=== PATIENT | male | born 1965 | race Caucasian/White ===

== ENCOUNTER 2020-02-24 16:28 | Emergency (ER) | payer OTHER ==
[2020-02-24] MEDS ORDERED: PREDNISONE 20 MG TABLET PO ONE (17:18)
--- NOTE | 2020-02-24 17:19 | ER Document Report ---
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 Stung on the left and right legs as well as on the chest. 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 Patient did have an EpiPen and used it around 3 PM. Patient states he did have some shortness of breath at the time and has developed some redness at the site of the stings. Currently asymptomatic. He did take oral Benadryl 25 mg at home. Was seen by EMS and brought for evaluation ROS: See HPI - all other systems were reviewed and are otherwise negative Constitutional: no fever Eyes: no drainage, no blurred vision ENT: no runny nose, no sore throat Cardiovascular: no chest pain Resp: + SOB, no cough GI: no vomiting, no diarrhea, no abdominal pain : no dysuria Integumentary: no rash Allergy: + hives Musculoskeletal: no extremity pain or swelling Neurological: no numbness/tingling, no weakness MEDICATIONS: I agree with the patient medications as charted by the RN. ALLERGIES: I agree with the allergies as charted by the RN. PAST MEDICAL HISTORY/PAST SURGICAL HISTORY: Reviewed and agree as charted by RN. SOCIAL HISTORY: Reviewed and agree as charted by RN. FAMILY HISTORY: No significant familial comorbid conditions directly related to patient complaint EXAM: Reviewed vital signs as charted by RN. CONSTITUTIONAL: Alert and oriented and responds appropriately to questions. Well-appearing; well-nourished HEAD: Normocephalic; atraumatic EYES: PERRL; Conjunctivae clear, sclerae non-icteric ENT: normal nose; no rhinorrhea; moist mucous membranes; pharynx without lesions noted, no uvula edema or deviation, no tonsillar hypertrophy, phonation normal. No angioedema NECK: Supple without meningismus; non-tender; no cervical lymphadenopathy, no masses. No stridor CARD: RRR; no murmurs, no clicks, no rubs, no gallops; symmetric distal pulses RESP: Normal chest excursion without splinting or tachypnea; breath sounds clear and equal bilaterally; no wheezes, no rhonchi, no rales, pulse oximetry 98% on room air not hypoxic ABD/GI: Normal bowel sounds; non-distended; soft, non-tender, no rebound, no guarding; no palpable organomegaly or masses. BACK: The back appears normal and is non-tender to palpation, there is no CVA tenderness EXT: Normal ROM in all joints; non-tender to palpation; no cyanosis, no effusions, no edema SKIN: Normal color for age and race; warm; dry; good turgor; small area of localized erythema to the left lower leg, left posterior thigh, right posterior thigh, left anterior chest wall. No generalized urticaria is noted NEURO: Moves all extremities equally; Motor and sensory function intact PSYCH: The patient's mood and manner are appropriate. Grooming and personal hygiene are appropriate. MDM: 55-year-old male presenting for allergic reaction. Has an allergy to hymenoptera, was stung 4 times by bees, used his EpiPen approximately an hour and a half ago. We will continue to observe patient for another hour and a half to complete the 4-hour observation. If he has no worsening symptoms will discharge home with prescription for steroids antihistamines and EpiPen - Related Data Allergies/Adverse Reactions: bee venom protein (honey bee) Allergy (Verified 02/24/20 16:45) Past Medical History - Social History Smoking Status: Former Smoker Chew tobacco use (# tins/day): No Drug Abuse: None Family History: Reviewed & Not Pertinent Patient has homicidal ideation: No Physical Exam - Vital signs Vitals: Resp Pulse Ox 13 98 02/24/20 16:35 02/24/20 16:35 Course - Re-evaluation Re-evalutation: 02/24/20 18:44 No distress at this time, no angioedema no stridor phonation is normal, no worsening of the erythematous areas where he was stung at this time. Will discharge home with return instructions - Vital Signs Vital signs: Temp Pulse Resp BP Pulse Ox 98.5 F 93 23 H 151/98 H 96 02/24/20 16:53 02/24/20 16:53 02/24/20 18:01 02/24/20 18:00 02/24/20 18:01 Discharge - Discharge Clinical Impression: Bee sting-induced anaphylaxis Qualifiers: Encounter type: initial encounter Injury intent: undetermined intent Qualified Code(s): T63.444A - Toxic effect of venom of bees, undetermined, initial encounter Condition: Stable Disposition: HOME, SELF-CARE Instructions: Acute Allergic Reaction ([facility]) Additional Instructions: 1. take the medications as prescribed 2. take Benadryl 25-50 mg three times daily for 3-4 days 3. follow up recheck with PCP for further evaluation and treatment, call for appt. 4. return for any shortness of breath or worsening rash or condition 5. Use the Epipen if needed for any shortness of breath, difficulty swallowing or worsening condition to buy time to get to an ER or call EMS for further treatment and evaluation Prescriptions: Prednisone [Deltasone 20 mg Tablet] 2 tab PO DAILY 5 Days #10 tablet Epinephrine [Epipen 2-Sim] 0.3 mg IJ PRN PRN #1 auto.injct PRN Reason: Famotidine [Pepcid 20 mg Tablet] 20 mg PO BID #12 tablet
[2020-02-24] MEDS ORDERED: FAMOTIDINE 20 MG TABLET PO ONE (17:22)
[2020-02-24 19:17] VITALS: BP 153/93
== END 2020-02-24 19:17 | disposition home or self-care (01) ==
LOC: ER 16:28
DX: T63.444A Toxic effect of venom of bees, undetermined, initial encounter (principal); T78.2XXA Anaphylactic shock, unspecified, initial encounter; Y93.89 Activity, other specified; Y92.821 Forest as the place of occurrence of the external cause; Z87.891 Personal history of nicotine dependence
CPT/HCPCS: 99283; J7512

== ENCOUNTER 2020-03-19 17:27 | Emergency (ER) | payer OTHER, MEDICAID ==
[2020-03-19 17:36] VITALS: BP 170/98
--- NOTE | 2020-03-19 18:00 | ER Document Report ---
ED Skin Rash/Insect Bite/Abscs - General Chief Complaint: Insect Bite Stated Complaint: SPIDER BITE Time Seen by Provider: 03/19/20 17:50 Primary Care Provider: CAMMY,FRANSICO [Primary Care Provider] - Follow up in 3-5 days Mode of Arrival: Ambulatory Information source: Patient Notes: 55-year-old male presented to ED for spider bite to the right lower leg. He states the spider bit him before yesterday. He states he is coming back up on 48 hours at this time. He does have a red swollen area to the right lateral calf area. I did consult Dr. Farnsworth who came and looked at his right he stated there it could be a spider bite and recommended treatment with doxycycline and steroids. She is alert oriented respirations regular nonlabored speaking in full sentences. He states he does have numerous allergies and he did use his EpiPen frequently. He is a [employer] and [facility]. Constitutional: Negative for fever. HENT: Negative for sore throat. Eyes: Negative for visual changes. Cardiovascular: Negative for chest pain. Respiratory: Negative for shortness of breath. Gastrointestinal: Negative for abdominal pain, vomiting or diarrhea. Genitourinary: Negative for dysuria. Musculoskeletal: Negative for back pain. Skin: Red inflamed area to the right lateral calf for close to 48 hours. He states it was a brown recluse bite. He states he saw the spider bite him. Neurological: Negative for headaches, weakness or numbness. 10 point ROS negative except as marked above and in HPI. PHYSICAL EXAMINATION: GENERAL: Well-appearing, well-nourished and in no acute distress. HEAD: Atraumatic, normocephalic. EYES: Pupils equal round extraocular movements intact, conjunctiva are normal. ENT: Nares patent NECK: Normal range of motion LUNGS: No respiratory distress Musculoskeletal: Normal range of motion NEUROLOGICAL: Normal speech, normal gait. PSYCH: Normal mood, normal affect. SKIN: Red inflamed area to the right lower calf that he states has been there for 2 days. - HPI Patient complains to provider of: Tender/swollen area, Spider bite Onset: Other - 2 days Onset/Duration: Persistent Quality of pain: Pressure Severity: Moderate Pain Level: 2 Skin Character: Tenderness, Other - insect bite Quality of rash: Painful Identify cause: Yes Exacerbated by: Walking Relieved by: Denies Similar symptoms previously: Yes Recently seen / treated by doctor: Yes - Related Data Allergies/Adverse Reactions: bee venom protein (honey bee) Allergy (Verified 03/19/20 17:50) ants Allergy (Uncoded 03/19/20 17:54) Past Medical History - General Information source: Patient - Social History Smoking Status: Never Smoker Chew tobacco use (# tins/day): No Frequency of alcohol use: None Drug Abuse: None Family History: Reviewed & Not Pertinent Patient has suicidal ideation: No Patient has homicidal ideation: No - Past Medical History Cardiac Medical History: Reports: None Pulmonary Medical History: Reports: None EENT Medical History: Reports: None Neurological Medical History: Reports: None Endocrine Medical History: Reports: None Renal/ Medical History: Reports: None Malignancy Medical History: Reports None GI Medical History: Reports: None Musculoskeletal Medical History: Reports None Skin Medical History: Reports Hx Cellulitis Psychiatric Medical History: Reports: None Traumatic Medical History: Reports: None Infectious Medical History: Reports: None - Immunizations Immunizations up to date: Yes Physical Exam - Vital signs Vitals: Temp Pulse Resp BP Pulse Ox 98.1 F 73 16 170/98 H 99 03/19/20 17:35 03/19/20 17:35 03/19/20 17:35 03/19/20 17:35 03/19/20 17:35 Course - Vital Signs Vital signs: Temp Pulse Resp BP Pulse Ox 98.1 F 73 16 170/98 H 99 03/19/20 17:35 03/19/20 17:35 03/19/20 17:35 03/19/20 17:35 03/19/20 17:35 Discharge - Discharge Clinical Impression: Spider bite Qualifiers: Encounter type: initial encounter Injury intent: accidental or unintentional Qualified Code(s): T63.301A - Toxic effect of unspecified spider venom, accidental (unintentional), initial encounter Condition: Stable Disposition: HOME, SELF-CARE Additional Instructions: You were seen for a spider bite to your right lower leg. Please spider bite okay Epsom Salt Soaks Soak the wound area in a container of warm epsom salt water. If you can't get the wound area into a bucket or yeager, use a folded towel soaked in the epsom salt solution and apply to the area. Use clean hot tap water (about the temperature of a very warm bath), mixing in about one (1) teaspoon for every pint of water. Two gallon --> 16 teaspoons Epsom Salts One gallon --> 8 teaspoons Epsom Salts Two quarts --> 4 teaspoons Epsom Salts One quart --> 2 teaspoons Epsom Salts Soak the wound for about 20 minutes while gently moving it around in the water. Repeat this four (4) times a day. Doxycycline Doxycycline (Vibramycin, Doryx) is an antibiotic of the tetracycline family . This type of drug is useful for infections of the respiratory tract and genital tract, and is sometimes used for intestinal infections. Unlike most tetracyclines, doxycycline can be taken with food. It is longer acting, and (usually) less prone to side effects than regular tetracycline. Tetracycline antibiotics can stain immature teeth and SHOULD NOT BE TAKEN BY CHILDREN, NURSING MOTHERS, OR WOMEN. Tetracyclines can make you more prone to sunburn. Abdominal cramping, nausea, and diarrhea are occasional side effects. Women may experience vaginal yeast infections. Call the doctor at once if you develop hives, itching, shortness of breath, or lightheadedness. Antibiotic Ointment Protection Your wounds are such that dressing them is not practical or optional. After cleansing, you should apply a thin coating of antibiotic ointment (Bacitracin, not Neosporin) to the wounds at least three times daily. This lessens infection risk, and may decrease the amount of scarring. Use a q-tip or dull butter knife, not your finger, to apply this ointment. Any debris or ooze which builds up in the ointment should be gently rubbed off with a sterile gauze pad. Harder crusting may need to be gently scrubbed off with a clean wash cloth with soap and warm water, perhaps applying a warm, wet wash cloth to the wound for ten minutes first. Development of redness, severe itching, or blistering may mean allergy to the ointment. See the doctor. STEROID MEDICATION: You have been given a medicine of the cortisone/steroid class. This medication is used to control inflammation or allergy. It is usually only given for a short period of time, until the acute process subsides. There are usually no side effects from short-term use of cortisone-like medications. Some persons feel an increased sense of well-being and are not sleepy at bedtime. Long-term use of cortisone medications is best avoided, unless required for a severe condition. If your condition does not remit, or relapses after the course of corticosteroid medication, you should consult your physician. FOLLOW-UP CARE: If you have been referred to a physician for follow-up care, call the physicians office for an appointment as you were instructed or within the next two days. If you experience worsening or a significant change in your symptoms, notify the physician immediately or return to the Emergency Department at any time for re-evaluation. Prescriptions: Prednisone [Deltasone 10 mg Tablet] 10 mg PO ASDIR PRN #21 tablet PRN Reason: Doxycycline Monohydrate 100 mg PO BID #20 capsule Forms: Elevated Blood Pressure [facility] [[facility] - Follow up in 3-5 days
--- NOTE | 2020-03-19 20:44 | ER Document Report ---
Entered by MAHNAZ WINKLER SCRIBE 03/19/20 1808 Acting as scribe for:TIA COATS MD Doctor's Note Notes: 03/19/20 18:04 Saw this patient with [employer] Drea Lassiter. Brown recluse spider bite 3 days ago to RLE. Highly allergic to other insects and other things, has epi pen at home. Originally was a blister, decapped, now drainig. 12cm surrounding erythema with warmth and tenderness to palpation. Recommend doxycycline, Medrol Dosepak, Benadryl. I personally performed the services described in the documentation, reviewed and edited the documentation which was dictated to the scribe in my presence, and it accurately records my words and actions.
== END 2020-03-19 18:09 | disposition home or self-care (01) ==
LOC: ER 17:27
DX: T63.331A Toxic effect of venom of brown recluse spider, accidental (unintentional), initial encounter (principal); Z91.030 Bee allergy status; Z91.038 Other insect allergy status
CPT/HCPCS: 99283